=== PATIENT | male | born 1950 | race Caucasian/White ===

== ENCOUNTER 2018-04-14 09:29 | Inpatient (IN) | payer OTHER ==
[2018-04-09 10:56] LABS: BASOPHILS % (AUTO) 0.5 % (0-1); EOSINOPHILS # (AUTO) 0.4 X10'3 (0-0.9); EOSINOPHILS % (AUTO) 4.8 % (0-6); LYMPHOCYTES # (AUTO) 1.9 X10'3 (1.1-4.8); LYMPHOCYTES % (AUTO) 24.6 % (21-51); MEAN CORPUSCULAR HGB CONC 34.8 % (33.0-36.5); MEAN CORPUSCULAR VOLUME 95.1 FL (78-98); MEAN PLATELET VOLUME 8.1 FL (7.4-10.4); MONOCYTES # (AUTO) 0.5 X10'3 (0-0.9); MONOCYTES % (AUTO) 7.2 % (2-12); NEUTROPHILS # (AUTO) 4.7 X10'3 (1.8-7.7); NEUTROPHILS % (AUTO) 62.9 % (42-75); PRE OP HEMATOCRIT 36.7 % (42.0-52.0); PRE OP HEMOGLOBIN 12.8 g/dL (14.0-17.9); PRE OP PLATELET COUNT 299 X10'3 (140-440); RED BLOOD COUNT 3.86 X10'6 (4.70-6.10); RED CELL DISTRIBUTION WIDTH 13.1 % (11.5-14.5)
[2018-04-09 11:01] LABS: CLARITY,URINE CLEAR (Clear); COLOR,URINE YELLOW (Yellow); GLUCOSE, URINE NEGATIVE (Neg); KETONES,URINE TRACE mg/dl (Neg); LEUKOCYTE ESTERASE ,URINE NEGATIVE (Neg); NITRITES, URINE NEGATIVE (Neg); OCCULT BLOOD,URINE MODERATE (Neg); PH,URINE 6.5 (4.8-8.0); PROTEIN,URINE NEGATIVE (Neg); UROBILINOGEN,URINE 0.2 E.U/dL (0.2-1.0)
[2018-04-09 11:04] LABS: UA COLLECTION TYPE CLN CATCH MIDSTREAM
[2018-04-09 11:07] LABS: BACTERIA,URINE NONE SEEN /HPF (Neg); MUCUS STRANDS NONE SEEN /LPF (Neg); SQUAMOUS EPITHELIAL CELL,UR NONE SEEN /LPF (FEW); WBC,URINE NONE SEEN /HPF (0-4)
[2018-04-09 11:07] LABS: PRE OP INR 1.2 INR; PRE OP PROTIME 12.7 SECONDS (9.0-12.0)
[2018-04-09 11:13] LABS: ALBUMIN 3.6 G/DL (3.4-5.0); ALKALINE PHOSPHATASE 105 IU/L (46-116); BLOOD UREA NITROGEN 7 MG/DL (7-18); BUN/CREATININE RATIO 7.2 (5.4-32.0); CHLORIDE 99 MMOL/L (99-107); CREATININE 0.97 MG/DL (0.60-1.10); PRE OP ALT 19 U/L (30-65); PRE OP ANION GAP 9 (8-16); PRE OP AST 14 U/L (10-37); PRE OP BILIRUB, TOTAL 1.2 MG/DL (0.0-1.0); PRE OP GLUCOSE 103 MG/DL (70-104); PRE OP POTASSIUM 4.1 MMOL/L (3.4-5.1); PRE OP SODIUM 135 MMOL/L (135-145); TOTAL CARBON DIOXIDE 27.1 MMOL/L (24-32); TOTAL PROTEIN 7.3 G/DL (6.4-8.2); eGFR 77 ML/MIN
[2018-04-14] VITALS (18 sets, daily range): BP systolic 88–141; BP diastolic 55–78
[~2018-04-14] VITALS: Ht 177.8 cm; Wt 93.4 kg
[~2018-04-14 09:29] MED LIST: CYAN-19 PO; Cefazolin 2GM/50ML dext iso,osmotic IVPB IV ONE; DABI150C PO; HYDROmorphone 1 mg/ml syringe IV PRN; HYDROmorphone inj. 0.5 MG/0.5 ML DISP.SYRIN IV PRN; LISI10TA4 PO; PRAV40TA3 PO; VERA180T PO; acetaminophen 325mg tablet PO ONE; acetaminophen 325mg tablet PO PRN; ascorbic acid 500mg tablet PO SCH; bisacodyl 10mg suppository rectal RC PRN; celeCOXIB 100mg capsule PO ONE; dabigatran 150mg capsule PO SCH; diphenhydrAMINE 25mg capsule PO PRN; famotidine 20mg tablet PO ONE; gabapentin 300mg capsule PO ONE; gabapentin 300mg capsule PO SCH; lisinopril 10 MG tablet PO SCH; magnesium hydroxide 30ml (MOM) UD suspension PO PRN; metoclopramide 5 mg/ml inj IV ONE; multivitamins, therapeutics tablet PO SCH; ondansetron/PF 4mg/2ml inj IV PRN; oxyCODONE IR 5mg (immed. release) tablet PO PRN; oxyCODONE SR 10mg (sust. release) tab PO ONE; potassium cl 20mEq in 1/2 NS 1,000 ML IV SCH; ringers solution, lacted 1,000 ML IV SCH; tranexamic acid inj. 1,000 MG in normal saline 100ml IV soln 90 ML IV ONE; vancomycin inj 1,500 MG in normal saline 300ml IV soln IV ONE; verapamil SR 180mg tablet PO SCH
[2018-04-14] MEDS ORDERED: ketorolac trometh. 30mg/ml inj. ONE ×2 (12:21→14:33)
[2018-04-14] MEDS ORDERED: vancomycin 1,000mg inj ONE ×2 (12:21→14:33)
[2018-04-14] MEDS ORDERED: ROPIVAcaine inj 250 MG, epiNEPHrine inj 0.5 MG, CloNIDine/PF inj 80 MCG in normal salin... SQ ONE ×2 (12:25→14:35)
[2018-04-14 13:42] LABS: PROTHROMBIN TIME 10.7 SECONDS (9.0-12.0)
[2018-04-14 14:03] LABS: PARTIAL THROMBOPLASTIN TIME 20 SECONDS (22-32)
[2018-04-14] MEDS ORDERED: BUPIVAcaine/PF 7.5mg/ml (0.75%) 10ml vial ONE (15:15)
[2018-04-14] MEDS ORDERED: tetracaine 1% (10mg/ml) pres. free inj. ONE (15:16)
[2018-04-14] MEDS ORDERED: fentaNYL/PF 50MCG/1 ML 2ML syringe ONE (15:17)
[2018-04-14] MEDS ORDERED: MIDAZolam 1mg/ml 10ml vial ONE (15:17)
[2018-04-14] MEDS ORDERED: ePHEDrine 50MG/ML INJ. ONE (16:06)
[2018-04-14] MEDS ORDERED: propofol inj 20 ML IV ONE (16:47)
[2018-04-14] MEDS ORDERED: ringers solution, lacted 1,000 ML IV SCH (16:53)
[2018-04-14] MEDS ORDERED: morphine 4 MG/ML inj SYRINge IV PRN ×2 (16:55)
[2018-04-14] MEDS ORDERED: meperidine/PF 25mg/ml syringe IV PRN ×3 (16:55)
[2018-04-14] MEDS ORDERED: proCHLORperazine 10 MG/2 ml inj IV PRN (16:55)
[2018-04-14] MEDS ORDERED: ondansetron/PF 4mg/2ml inj IV PRN (16:55)
[2018-04-14] MEDS: gabapentin 300mg capsule PO SCH ×2 (19:18→21:15)
[2018-04-14] MEDS: cyanocobalamin 500mcg tablet PO SCH (19:18)
[2018-04-14] MEDS ORDERED: sennosides 8.6mg tablet PO SCH (21:00)
[2018-04-14] MEDS: ascorbic acid 500mg tablet PO SCH (21:15)
[2018-04-14] MEDS: acetaminophen 325mg tablet PO SCH (21:15)
[2018-04-14] MEDS: sennosides 8.6mg tablet PO SCH (21:15)
[2018-04-14] MEDS: cefazolin/dext.iso 2gm/50ml 50 ML IV SCH (21:15)
[2018-04-14] MEDS: potassium cl 20mEq in 1/2 NS 1,000 ML IV SCH (21:15)
[2018-04-14] MEDS: dabigatran 150mg capsule PO SCH (21:15)
[2018-04-14] MEDS: verapamil SR 180mg tablet PO SCH (21:15)
[2018-04-14] MEDS: pravastatin 40mg tablet PO SCH (21:15)
[2018-04-15 02:00] VITALS: BP 105/63
[2018-04-15] MEDS: acetaminophen 325mg tablet PO SCH ×4 (02:00→19:50)
[2018-04-15] MEDS: cefazolin/dext.iso 2gm/50ml 50 ML IV SCH (03:47)
[2018-04-15] MEDS: oxyCODONE IR 5mg (immed. release) tablet PO PRN ×4 (05:33→22:29)
[2018-04-15] MEDS: potassium cl 20mEq in 1/2 NS 1,000 ML IV SCH ×3 (05:33→12:49)
[2018-04-15 06:00] VITALS: BP 112/68
[2018-04-15 06:03] LABS: BASOPHILS % (AUTO) 0.5 % (0-1); EOSINOPHILS # (AUTO) 0.1 X10'3 (0-0.9); HEMATOCRIT 28.8 % (42.0-52.0); HEMOGLOBIN 9.9 g/dl (14.0-17.9); LYMPHOCYTES # (AUTO) 1.4 X10'3 (1.1-4.8); LYMPHOCYTES % (AUTO) 19.1 % (21-51); MEAN CORPUSCULAR HGB CONC 34.5 % (33.0-36.5); MEAN CORPUSCULAR VOLUME 95.7 FL (78-98); MEAN PLATELET VOLUME 8.2 FL (7.4-10.4); MONOCYTES # (AUTO) 0.4 X10'3 (0-0.9); MONOCYTES % (AUTO) 6.3 % (2-12); NEUTROPHILS # (AUTO) 5.1 X10'3 (1.8-7.7); NEUTROPHILS % (AUTO) 72.1 % (42-75); PLATELET COUNT 221 X10'3 (140-440); RED BLOOD COUNT 3.01 X10'6 (4.70-6.10); WHITE BLOOD COUNT 7.1 X10'3 (4.5-11.0)
[2018-04-15 06:16] LABS: ANION GAP 6 (8-16); CHLORIDE 101 MMOL/L (99-107); POTASSIUM 5.1 MMOL/L (3.5-5.1); SODIUM 133 MMOL/L (135-145); TOTAL CARBON DIOXIDE 25.8 MMOL/L (24-32)
[2018-04-15] MEDS: verapamil SR 180mg tablet PO SCH ×2 (08:31→19:49)
[2018-04-15] MEDS: dabigatran 150mg capsule PO SCH ×2 (08:32→19:49)
[2018-04-15] MEDS: gabapentin 300mg capsule PO SCH ×3 (08:32→19:49)
[2018-04-15] MEDS: multivitamins, therapeutics tablet PO SCH (08:32)
[2018-04-15] MEDS: cyanocobalamin 500mcg tablet PO SCH (08:33)
[2018-04-15] MEDS: lisinopril 10 MG tablet PO SCH (08:33)
[2018-04-15] MEDS: ascorbic acid 500mg tablet PO SCH ×2 (08:33→19:49)
[2018-04-15 10:00] VITALS: BP 127/74
[2018-04-15 18:00] VITALS: BP 106/70
[2018-04-15] MEDS: pravastatin 40mg tablet PO SCH (19:49)
[2018-04-15] MEDS: sennosides 8.6mg tablet PO SCH (19:50)
[2018-04-15 22:00] VITALS: BP 136/71
[2018-04-16] MEDS: acetaminophen 325mg tablet PO SCH (02:00)
[2018-04-16 05:00] VITALS: BP 116/67
[2018-04-16 05:39] LABS: BASOPHILS % (AUTO) 0.3 % (0-1); EOSINOPHILS # (AUTO) 0.2 X10'3 (0-0.9); EOSINOPHILS % (AUTO) 2.7 % (0-6); HEMATOCRIT 30.5 % (42.0-52.0); HEMOGLOBIN 10.5 g/dl (14.0-17.9); LYMPHOCYTES # (AUTO) 1.2 X10'3 (1.1-4.8); LYMPHOCYTES % (AUTO) 13.8 % (21-51); MEAN CORPUSCULAR HEMOGLOBIN 33.1 PG (27.0-31.0); MEAN CORPUSCULAR HGB CONC 34.5 % (33.0-36.5); MEAN CORPUSCULAR VOLUME 96.2 FL (78-98); MEAN PLATELET VOLUME 8.5 FL (7.4-10.4); MONOCYTES # (AUTO) 0.7 X10'3 (0-0.9); MONOCYTES % (AUTO) 8.5 % (2-12); NEUTROPHILS # (AUTO) 6.5 X10'3 (1.8-7.7); NEUTROPHILS % (AUTO) 74.7 % (42-75); PLATELET COUNT 247 X10'3 (140-440); RED BLOOD COUNT 3.17 X10'6 (4.70-6.10); WHITE BLOOD COUNT 8.6 X10'3 (4.5-11.0)
[2018-04-16] MEDS: oxyCODONE IR 5mg (immed. release) tablet PO PRN (05:47)
[2018-04-16] MEDS: verapamil SR 180mg tablet PO SCH (08:59)
[2018-04-16] MEDS: cyanocobalamin 500mcg tablet PO SCH (09:00)
[2018-04-16] MEDS: dabigatran 150mg capsule PO SCH (09:00)
[2018-04-16] MEDS: lisinopril 10 MG tablet PO SCH (09:00)
[2018-04-16] MEDS: gabapentin 300mg capsule PO SCH (09:00)
[2018-04-16] MEDS: ascorbic acid 500mg tablet PO SCH (09:00)
[2018-04-16] MEDS: multivitamins, therapeutics tablet PO SCH (09:00)
[2018-04-16 10:00] VITALS: BP 120/69
== END 2018-04-16 11:30 | disposition home or self-care (01) | DRG 470 ==
LOC: PAS IN 11:32 → EDSTATUS 16:30 → ORTHO 4S 19:00
PROVIDERS: ADMIT Orthopaedic Surgery; ATTEND Orthopaedic Surgery
PROC: 0SRB06Z Replacement of Left Hip Joint with Oxidized Zirconium on Polyethylene Synthetic Substitute, Open Approach (ICD-10-PCS; principal; 2018-04-14 15:17)
DX: M16.12 Unilateral primary osteoarthritis, left hip (principal); M87.052 Idiopathic aseptic necrosis of left femur; D62 Acute posthemorrhagic anemia; E78.5 Hyperlipidemia, unspecified; I10 Essential (primary) hypertension; I48.91 Unspecified atrial fibrillation; M25.752 Osteophyte, left hip; Z96.641 Presence of right artificial hip joint; M81.0 Age-related osteoporosis without current pathological fracture; Z79.82 Long term (current) use of aspirin; Z79.899 Other long term (current) drug therapy; Z80.1 Family history of malignant neoplasm of trachea, bronchus and lung
CPT/HCPCS: 36415; 71046; 72170; 80051; 80053; 81001; 85025; 85610; 85730; 86885; 86900; 86901; 87070; 97110; 97116; 97162; 97530; A4615; A6255; A7000; A9272; C1758; C1776; J0171; J0690; J0735; J1885; J2250; J2704; J2765; J2795; J3010; J3370; J3420; J3490; J7030; J7120

== ENCOUNTER 2023-08-25 08:47 | Outpatient (CLI) | payer OTHER ==
[~2023-08-25 08:47] MED LIST changes: -CYAN-19 PO; +CYAN100019 PO; -Cefazolin 2GM/50ML dext iso,osmotic IVPB IV ONE; -HYDROmorphone 1 mg/ml syringe IV PRN; -HYDROmorphone inj. 0.5 MG/0.5 ML DISP.SYRIN IV PRN; +LISI10TA27 PO; -LISI10TA4 PO; -acetaminophen 325mg tablet PO ONE; -acetaminophen 325mg tablet PO PRN; -ascorbic acid 500mg tablet PO SCH; -bisacodyl 10mg suppository rectal RC PRN; -celeCOXIB 100mg capsule PO ONE; -dabigatran 150mg capsule PO SCH; -diphenhydrAMINE 25mg capsule PO PRN; -famotidine 20mg tablet PO ONE; -gabapentin 300mg capsule PO ONE; -gabapentin 300mg capsule PO SCH; -lisinopril 10 MG tablet PO SCH; -magnesium hydroxide 30ml (MOM) UD suspension PO PRN; -metoclopramide 5 mg/ml inj IV ONE; -multivitamins, therapeutics tablet PO SCH; -ondansetron/PF 4mg/2ml inj IV PRN; -oxyCODONE IR 5mg (immed. release) tablet PO PRN; -oxyCODONE SR 10mg (sust. release) tab PO ONE; -potassium cl 20mEq in 1/2 NS 1,000 ML IV SCH; -ringers solution, lacted 1,000 ML IV SCH; -tranexamic acid inj. 1,000 MG in normal saline 100ml IV soln 90 ML IV ONE; -vancomycin inj 1,500 MG in normal saline 300ml IV soln IV ONE; -verapamil SR 180mg tablet PO SCH
== END 2023-08-25 23:59 | disposition home or self-care (01) ==
LOC: CARD DIAG 08:47
PROVIDERS: ATTEND Chiropractor
DX: I08.8 Other rheumatic multiple valve diseases (principal); I25.9 Chronic ischemic heart disease, unspecified; I48.91 Unspecified atrial fibrillation; R01.1 Cardiac murmur, unspecified
CPT/HCPCS: 93005; 93306

== ENCOUNTER 2024-01-05 14:15 | Outpatient (CLI) | payer OTHER | END 2024-01-05 23:59 | disposition home or self-care (01) | LOC: RAD 14:15 | PROVIDERS: ATTEND Chiropractor | DX: I08.8 Other rheumatic multiple valve diseases (principal); I25.89 Other forms of chronic ischemic heart disease | CPT/HCPCS: 93306 ==

== ENCOUNTER 2024-09-13 08:41 | Outpatient (CLI) | payer OTHER | END 2024-09-13 23:59 | disposition home or self-care (01) | LOC: CARD DIAG 08:41 | PROVIDERS: ATTEND Chiropractor | DX: I08.3 Combined rheumatic disorders of mitral, aortic and tricuspid valves (principal); I48.91 Unspecified atrial fibrillation; I25.89 Other forms of chronic ischemic heart disease; I25.10 Atherosclerotic heart disease of native coronary artery without angina pectoris; I70.0 Atherosclerosis of aorta | CPT/HCPCS: 93005; 93306 ==

== ENCOUNTER 2024-12-02 09:31 | Outpatient (CLI) | payer OTHER ==
[~2024-12-02 09:31] MED LIST changes: +APIX5TAB3 PO; +CHOL100046 PO; -DABI150C PO; +ENOX80SY7 SUBCUT; +IODIXANOL 320 MG/ML INFUS..BTL 100ML IV ONE; -LISI10TA27 PO; -PRAV40TA3 PO; +ROSU20TA98 PO
[2024-12-02 10:23] LABS: BASOPHILS # (AUTO) 0.1 X10'3 (0-0.2); EOSINOPHILS # (AUTO) 0.1 X10'3 (0-0.9); EOSINOPHILS % (AUTO) 1.4 % (0-6); HEMATOCRIT 42.2 % (42.0-52.0); HEMOGLOBIN 14.5 g/dl (14.0-17.9); LYMPHOCYTES # (AUTO) 1.5 X10'3 (1.1-4.8); LYMPHOCYTES % (AUTO) 26.9 % (21-51); MEAN CORPUSCULAR HEMOGLOBIN 32.8 PG (27.0-31.0); MEAN CORPUSCULAR HGB CONC 34.3 g/dL (33.0-36.5); MEAN CORPUSCULAR VOLUME 95.7 FL (78-98); MEAN PLATELET VOLUME 8.6 FL (7.4-10.4); MONOCYTES # (AUTO) 0.4 X10'3 (0-0.9); NEUTROPHILS # (AUTO) 3.4 X10'3 (1.8-7.7); NEUTROPHILS % (AUTO) 62.7 % (42-75); PLATELET COUNT 251 X10'3 (140-440); RED BLOOD COUNT 4.41 X10'6 (4.70-6.10); WHITE BLOOD COUNT 5.5 X10'3 (4.5-11.0)
[2024-12-02 10:37] LABS: INR 1.2 INR; PROTHROMBIN TIME 12.4 SECONDS (9.0-12.0)
[2024-12-02 10:41] LABS: ALANINE AMINOTRANSFERASE 28 U/L (12-78); ALBUMIN/GLOBULIN RATIO 1.1 (1.1-1.5); ALKALINE PHOSPHATASE 92 IU/L (46-116); ANION GAP 8 (8-16); ASPARTATE AMINO TRANSFERASE 22 U/L (10-37); BILIRUBIN,TOTAL 1.3 MG/DL (0.1-1.0); BLOOD UREA NITROGEN 11 MG/DL (7-18); BUN/CREATININE RATIO 13.4 (10.0-20.0); CALCIUM 9.4 MG/DL (8.5-10.1); CHLORIDE 104 MMOL/L (99-107); CREATININE 0.82 MG/DL (0.60-1.10); GLUCOSE 95 MG/DL (70-104); SODIUM 142 MMOL/L (135-145); TOTAL CARBON DIOXIDE 30.5 MMOL/L (24-32); TOTAL PROTEIN 7.5 G/DL (6.4-8.2); eGFR > 90 ML/MIN
[2024-12-02 10:48] LABS: APTT 31 SECONDS (22-32)
[2024-12-02 10:49] LABS: PRO BRAIN NATRIURETIC PEPTIDE 1058 PG/ML (0-450)
== END 2024-12-02 23:59 | disposition home or self-care (01) ==
LOC: RAD 09:31
PROVIDERS: ATTEND Internal Medicine Cardiovascular Disease
DX: I25.10 Atherosclerotic heart disease of native coronary artery without angina pectoris (principal); I65.23 Occlusion and stenosis of bilateral carotid arteries; I35.0 Nonrheumatic aortic (valve) stenosis; R06.02 Shortness of breath; I70.0 Atherosclerosis of aorta; I65.29 Occlusion and stenosis of unspecified carotid artery; J98.11 Atelectasis; K76.89 Other specified diseases of liver; M47.816 Spondylosis without myelopathy or radiculopathy, lumbar region
CPT/HCPCS: 36415; 71046; 71275; 74174; 75572; 80053; 83880; 85025; 85610; 85730; 93880; Q9967

== ENCOUNTER 2025-06-23 05:56 | Inpatient (IN) | payer OTHER ==
--- NOTE | 2025-06-16 15:23 | ELECTROCARDIOGRAPH REPORT ---
[facility] Test Date: 2025-06-16 Test Time: 15:21:15 Pat Name: JAVIER SWAIN Department: PRE/OP CARDIOLOGY Room: Gender: M Pie Dough Roller: NONA : 1950 Requested By: AJIT BAGLEY Order Number: [id number] Reading MD: Dr. LEDY Hanna Measurements Intervals [place] Rate: 76 P: 0 TX: 0 QRS: 68 QRSD: 91 T: 30 QT: 449 QTc: 505 Interpretive Statements Atrial fibrillation Electronically Signed On 06-17-2025 16:48:[address] LEDY Hanna Please click the below link to view image of tracing.
[2025-06-16 15:32] LABS: LEUKOCYTE ESTERASE ,URINE NEGATIVE (Neg); NITRITES, URINE NEGATIVE (Neg); OCCULT BLOOD,URINE MODERATE (Neg); UA COLLECTION TYPE NON-SPECIFIED
[2025-06-16 15:33] LABS: MEAN PLATELET VOLUME 8.4 FL (7.4-10.4); PRE OP HEMATOCRIT 38.6 % (42.0-52.0); PRE OP HEMOGLOBIN 13.2 g/dL (14.0-17.9); PRE OP PLATELET COUNT 219 X10'3 (140-440); PRE OP WHITE BLOOD COUNT 6.4 10'3 (4.8-10.8); RED CELL DISTRIBUTION WIDTH 13.5 % (11.5-14.5)
[2025-06-16 15:42] LABS: SQUAMOUS EPITHELIAL CELL,UR FEW /LPF (FEW)
[2025-06-16 15:44] LABS: PRE OP INR 1.2 INR; PRE OP PARTIAL THROMB. TIME 31.0 SECONDS (22-32); PRE OP PROTIME 12.1 SECONDS (9.0-12.0)
[2025-06-16 15:55] LABS: CREATININE 1.17 MG/DL (0.60-1.10); PRE OP ALT 38 U/L (30-65); PRE OP ANION GAP 7 (8-16); PRE OP AST 25 U/L (10-37); PRE OP BILIRUB, TOTAL 0.8 MG/DL (0.0-1.0); PRE OP GLUCOSE 112 MG/DL (70-104); PRE OP POTASSIUM 3.9 MMOL/L (3.4-5.1); PRE OP SODIUM 142 MMOL/L (135-145); PRO BRAIN NATRIURETIC PEPTIDE 1500 PG/ML (0-450); TOTAL CARBON DIOXIDE 29.4 MMOL/L (24-32); eGFR 61 ML/MIN
[~2025-06-23] VITALS: Ht 177.8 cm; Wt 89.4 kg
[2025-06-23] VITALS (28 sets, daily range): BP systolic 111–163; BP diastolic 58–94; PULSE 65–104; RESP 11–19; TEMP 96.9–97.8; O2SAT 93–100
[2025-06-23] MEDS: ceFAZolin 2gm/dext,iso 50mL 50 ML IV ONE (05:30)
[~2025-06-23 05:56] MED LIST changes: -ENOX80SY7 SUBCUT; -IODIXANOL 320 MG/ML INFUS..BTL 100ML IV ONE; +nitroPRUSSIDE (NIPRIDE) (200MCG/ML) 100ML Drip IV SCH; +ondansetron/PF 4mg/2ml inj IV PRN; +phenylephrine inj 50 MG in normal saline 250ml IV solN IV SCH
--- NOTE | 2025-06-23 06:51 | RADIOLOGY REPORT ---
CHEST RADIOGRAPH Indication: PREOP Technique: Single frontal view of the chest was obtained COMPARISON: DI CHEST,TWO VIEWS on DOS: 12/02/24 FINDINGS: Lines and Tubes: None Lungs: Clear Pleura: No effusion. No pneumothorax. Cardiomediastinal contours: Unremarkable Bones: Unremarkable IMPRESSION: 1. No acute disease.
[2025-06-23] MEDS: ringers solution, lacted 1,000 ML IV SCH ×2 (07:00→07:05)
[2025-06-23] MEDS: VANCOMYCIN/H2O 1.5g/300mL PB 300 ML IV ONE (07:02)
[2025-06-23] MEDS ORDERED: labetalol 20mg/4ml (5mg/ml) syringe IV PRN ×2 (07:05→10:20)
[2025-06-23] MEDS ORDERED: hydrALAZINE 20mg/ml inj. IV PRN ×2 (07:05→10:20)
[2025-06-23] MEDS ORDERED: ondansetron/PF 4mg/2ml inj IV PRN ×2 (07:05→10:20)
[2025-06-23] MEDS ORDERED: morphine 4 MG/ML inj SYRINge IV PRN ×2 (07:05)
[2025-06-23] MEDS ORDERED: protamine sulfate 10mg/ml inj. ONE (08:40)
[2025-06-23] MEDS ORDERED: heparin 1,000 UNITS/NS 500ml 1,500 ML ONE (08:44)
[2025-06-23] MEDS ORDERED: LIDOcaine 1% 30ml preserv. free vial ONE (08:44)
[2025-06-23] MEDS ORDERED: midazolam 1 mg/ML 2ml injection ONE (08:45)
[2025-06-23] MEDS ORDERED: fentaNYL/PF 50MCG/1 ML 2ML syringe ONE (08:45)
[2025-06-23] MEDS ORDERED: desflurane 240ml liquid inh. IH ONE (09:33)
[2025-06-23] MEDS ORDERED: heparin 1,000unit/ml 10ml vial 10 ML ONE (09:40)
[2025-06-23] MEDS ORDERED: LIDOcaine 2% (20mg/ml) 5ml vial ONE (09:40)
[2025-06-23] MEDS ORDERED: propofol inj 20 ML IV ONE (09:40)
[2025-06-23] MEDS ORDERED: pantoprazole 40mg Tablet.DR PO PRN (10:20)
[2025-06-23] MEDS ORDERED: ALPRAZolam 0.25mg tablet PO PRN (10:20)
[2025-06-23] MEDS ORDERED: docusate sod 100mg capsule PO PRN (10:20)
[2025-06-23] MEDS ORDERED: potassium Cl 40MEQ/270ML bag 250 ML IV PRN (10:20)
[2025-06-23] MEDS ORDERED: potassium Cl 20 mEq SR tablet PO PRN (10:20)
[2025-06-23] MEDS ORDERED: magnesium sulf-water 2g/50mL 50 ML IV PRN (10:20)
[2025-06-23] MEDS ORDERED: potassium CL 10mEq/100ml bag 100 ML IV PRN (10:20)
[2025-06-23] MEDS ORDERED: potassium Cl 20mEq/100mL bag 100 ML IV PRN (10:20)
[2025-06-23] MEDS ORDERED: potassium Cl 40MEQ/1/2NS 520ml 520 ML IV PRN (10:20)
[2025-06-23] MEDS ORDERED: magnesium sulf-water 4G/100mL 100 ML IV PRN (10:20)
--- NOTE | 2025-06-23 10:29 | OPERATIVE REPORT ---
Operative Report Providers to CC CC: Tristen Bonilla MD; JAYESH GATICA MD ~ Date of Procedure: Jun 23, 2025 Pre-Operative Diagnosis: Severe Aortic Stenosis Post-Operative Diagnosis SAME as PRE-Op Procedure Performed 1. Ultrasound-guided access, bilateral femoral vessels. 2. Bilateral femoral angiography. 3. Ascending aortography. 4. Temporary transvenous pacer to the RV apex. 5. Placement of a 26 mm Olmedo S3 Resilia valve. Surgeon: Cristian Gatica MD Plate Shear Operator MD Dr. Rajat Whaley MD Anesthesiologist: Ronni Ledbetter Type of Anesthesia: General Findings: Severe Aortic Stenosis Complications None Prosthetics\Implants used: Olmedo 26mm S3 Resilia Estimated Blood Loss: Minimal Specimen Removed: None Description of Procedure: The patient was brought to the logging rafter laborer in a fasting state. They underwent general anesthesia. Ultrasound was used to guide access to the bilateral femoral vessels, 7-Norwegian sheath, left femoral artery, 6-Norwegian sheath, right femoral artery and left femoral vein. Bilateral femoral angiograms were obtained. Heparin was given to maintain an ACT over 250 seconds. Two crisscross Percloses were placed on the left. We upsized to an 8-Norwegian sheath. Two pigtail catheters placed in the ascending aorta. Ascending aortography done to determine the angle of deployment. Temporary transvenous pacer to the RV apex and confirmed capture. We upsized an 8-Norwegian sheath to a 14-Norwegian Olmedo eSheath on the left. We crossed the aortic valve using a straight stiff exchange length Terumo wire supported by a 6-Norwegian AL1 catheter. LV AO pressures were recorded. A Cook extra support wire was placed in the left ventricle. A 26mm Olmedo S3 Resilia valve was brought to position and under rapid right ventricular pacing was deployed. Post-procedure, there was trivial AI and no residual . Guidewires and balloons were removed at this time. The temporary pacer was removed. The 14-Norwegian Olmedo eSheath was removed and two crisscross Percloses tied with adequate hemostasis. The arterial sheath on the right was removed and a single Perclose tied. The venous sheath on the left was removed and a single Angioseal used for hemostasis. Protamine was given to reverse the effects of heparin. The patient was stable post-procedure. Good pulses in the legs and no evidence of bleeding, transferred to the PACU in stable condition. HEMODYNAMICS: Pre: LV: 155/12 mmHg LVEDP: 23mmHg Ao: 124/64, MAP 88mmHg Post: LV: 146/16 mmHg LVEDP: 29 mmHg Ao: 142/71, MAP 99mmHg RESULTS: 1. Successful placement of a 26mm Olmedo S3 Resilia valve, left transfemoral approach, two perclose devices. Resume OAC in AM if no signs/symptoms of bleeding 2. Afib: h/o CVA. OAC as above 3. Hypertension: Resume if blood pressure remains stable 4. Acute on chronic diastolic heart failure, LVEDP 23mmHg. Moderate MR. Patient will be watched in the recovery area until stable, then transferred to telemetry at that time. CRISTIAN GATICA MD Jun 23, 2025 10:29
--- NOTE | 2025-06-23 10:43 | ELECTROCARDIOGRAPH REPORT ---
[facility] Test Date: 2025-06-23 Test Time: 10:40:42 Pat Name: JAVIER SWAIN Department: [facility] IN Room: [place] [address] Gender: M Home Lighting Adviser: NONA : 1950 Requested By: CRISTIAN HERNANDEZ Order Number: [id number] Reading MD: Dr. LEDY Hanna Measurements Intervals [place] Rate: 76 P: 0 PA: 0 QRS: 42 QRSD: 146 T: 27 QT: 511 QTc: 575 Interpretive Statements Atrial fibrillation Left bundle branch block Electronically Signed On 06-24-2025 16:26:[address] LEDY Hanna Please click the below link to view image of tracing.
[2025-06-23] MEDS: normal saline 1000ml 1,000 ML IV SCH (13:02)
[2025-06-23] MEDS: ceFAZolin 1GM/D5W- ADD-VANTAGE 50 ML IV SCH (16:41)
[2025-06-23] MEDS: sod chloride 0.9% 10ml flush syringe IV SCH (16:42)
--- NOTE | 2025-06-23 16:58 | CARDIOLOGY REPORT ---
APPROVED REPORT EXAM: Focused, limited intraprocedural transthoracic 2D, spectral and color flow Doppler echocardiogram during TAVR deployment. Patient Location: [facility] Blood Pressure: 143 / 79 mmHg Heart Rate: 90'S bpm Rhythm: ATRIAL FIBRILLATION Indications SEVERE AORTIC STENOSIS 26 mm Olmedo Malu 3 Ultra RESILIA Bioprosthetic TAVR HYPERTENSION ATRIAL FIBRILLATION Photo Technologist: Nitza ADLER MD / Interventionalist: Nickolas Gatica MD and Rosa Jerez MD. / Surgeon: Anselmo Willson MD. / Device rep: Destiny Balbuena ELS Previous echo: 09/13/24 [facility] RL EF: 60-65%; FERNANDO 0.69; PKV: 4.29; GRAD: 75 / 43; LVOT 2.11; Liliya; modMR; mTR LEFT VENTRICLE Normal LV size with mild concentric hypertrophy. Overall systolic function is normal. LVEF is 65%. RIGHT VENTRICLE RV is normal size and function. RVSP is estimated at 37 mmHG. ATRIA Left atrium is severely dilated. AORTIC VALVE Trileaflet AV appears heavily calcified with significant stenosis demonstrated by reduced excursion and increased transvalvular and ascending aorta turbulance. FERNANDO: 0.6 cmsq; Pkv: 3.90 m/sec; Gradients: 60/33 mmHG. Mild insufficiency. POST DEPLOYMENT (LOOP: 20): 26 mm Olmedo Malu 3 Ultra Resilia bioprosthetic TAVR appears well seated with normal function. Trace paravalvular leak present at 2 and 7 o'clock in TTE SAX BASE. FERNANDO is measured at 3.35 cmsq. Peak/mean gradients of 6/3 mmHG. Peak velocity is measured at 1.27 m/sec. MITRAL VALVE Moderate MV annular calcification without stenosis. Moderate regurgitation. TRICUSPID VALVE TV appears structurally normal with mild regurgitation. PULMONIC VALVE Normal PV without stenosis, mild insufficiency. GREAT VESSELS Aortic root is normal in size. Ascending aorta is normal in size. PERICARDIUM Normal pericardium. No effusion.
[2025-06-23] MEDS: vancomycin/NS 1 GM ADD-VANTAGE 250 ML IV SCH (20:51)
[2025-06-23] MEDS: verapamil SR 180mg tablet PO SCH (22:13)
[2025-06-24 02:00] VITALS: BP 123/91; PULSE 56; RESP 18; TEMP 97.8; O2SAT 92
[2025-06-24] MEDS: HYDROcodone/acetaminophen 5mg/325mg tablet PO PRN (03:38)
[2025-06-24 06:01] LABS: MEAN PLATELET VOLUME 9.1 FL (7.4-10.4); RED CELL DISTRIBUTION WIDTH 13.0 % (11.5-14.5)
[2025-06-24 06:25] LABS: CREATININE 0.88 MG/DL (0.60-1.10); PRO BRAIN NATRIURETIC PEPTIDE 2587 PG/ML (0-450); TOTAL CARBON DIOXIDE 23.8 MMOL/L (24-32); eCRCL 74 ML/MIN; eGFR 84 ML/MIN
--- NOTE | 2025-06-24 06:28 | ELECTROCARDIOGRAPH REPORT ---
[facility] Test Date: 2025-06-24 Test Time: 06:25:52 Pat Name: JAVIER SWAIN Department: [facility] 3S Room: [facility] [address] Gender: M Carbonation Equipment Operator: DEBRA : 1950 Requested By: CRISTIAN HERNANDEZ Order Number: [id number] Reading MD: Dr. LEDY Hanna Measurements Intervals [place] Rate: 69 P: 0 [place]: 0 QRS: 54 QRSD: 84 T: 56 QT: 463 QTc: 496 Interpretive Statements Atrial fibrillation Probable anteroseptal infarct, old Prolonged QT interval Electronically Signed On 06-24-2025 16:27:[address] LEDY Hanna Please click the below link to view image of tracing.
[2025-06-24 07:00] VITALS: BP 122/51; PULSE 69; RESP 15; TEMP 97.4; O2SAT 98
--- NOTE | 2025-06-24 08:43 | RADIOLOGY REPORT ---
EXAM: DI CHEST,SINGLE VIEW Indication: s/p TAVR Technique: Single frontal view of the chest was obtained Comparison: DI CHEST,SINGLE VIEW on DOS: 06/23/25, DI CHEST,TWO VIEWS on DOS: 12/02/24 FINDINGS: Lines and Tubes: None Lungs: No focal consolidation. Pleura: No effusion. No pneumothorax. Cardiomediastinal contours: Unremarkable Bones: No acute osseous abnormality. IMPRESSION: No acute cardiopulmonary disease.
[2025-06-24] MEDS: cyanocobalamin 500mcg tablet PO SCH (09:12)
[2025-06-24] MEDS: cholecalciferol (vitamin D3) 1,000 unit (25mcg) tablet PO SCH (09:13)
[2025-06-24 11:00] VITALS: BP 129/60; PULSE 78; RESP 15; TEMP 97.3; O2SAT 95
[2025-06-24] MEDS ORDERED: LIDOCAINE 2%/EPI 1:100,000 inj. Multi-dose 20 ML VIAL ONE (14:57)
[2025-06-24 15:00] VITALS: BP 150/56; PULSE 73; RESP 17; TEMP 97.5; O2SAT 98
--- NOTE | 2025-06-24 19:40 | CARDIOLOGY REPORT ---
APPROVED REPORT EXAM: Limited 2D, Doppler, and color-flow Echocardiogram. Patient Location: [facility] Blood Pressure: 123/91 mmHg Heart Rate: 70-90 bpm Rhythm: Atrial Fibrillation Indications ONE DAY FOLLOW-UP TAVR 26 mm Olmedo Malu 3 Ultra RESILIA Bioprosthetic TAVR Supervisor Rubber Covering: Nitza Bonilla MD Previous echo 06/23/25 [facility] EF 65; FERNANDO 3.35; Peak v 1.27; Grad 6/3 2D Dimensions LVOT Diameter 2.60 (1.8-2.4cm) IVC 22.88 mm Aortic Valve AoV Peak Rogelio. 163.9 cm/s AoV VTI 30.9 cm AO Peak GR. 10.7 mmHg AO Mean GR. 6 mmHg LVOT VTI 18.71 cm LVOT Peak Rogelio. 93.6 cm/s FERNANDO(VTI)/BSA 3.20 cm2/m2 FERNANDO (VTI) 3.20 cm2 Tricuspid Valve TR P. Velocity 243 cm/s RAP ESTIMATE 10 mmHg TR Peak Gr. 24 mmHg RVSP 34 mmHg LEFT VENTRICLE LV appears normal in size and contractility. Overall systolic function appears normal. LVEF is 65%. RIGHT VENTRICLE RV appears normal in size and contractility. RVSP is estimated at 34 mmHG. AORTIC VALVE 26 mm Olmedo Malu 3 Ultra RESILIA Bioprosthetic TAVR appears well seated. FERNANDO of 3.2 cmsq with a peak/mean gradient of 11/6 mmHG and a peak velocity 1.64 m/s. Trace paravalvular leak noted at 6 and 12 oclock PSAX TTE. MITRAL VALVE MV is thickened with moderate annular calcification. Mild to moderate mitral regurgitation. TRICUSPID VALVE The tricuspid valve is normal in structure. Mild tricuspid regurgitation. PULMONIC VALVE The pulmonary valve is normal in structure. Trace pulmonic regurgitation. GREAT VESSELS IVC is dilated and collapses greater than 50% with inspiration. PERICARDIUM There is no pericardial effusion. Other Information Study Quality: Adequate Conclusion LV appears normal in size and contractility. Overall systolic function appears normal. LVEF is 65%. RV appears normal in size and contractility. RVSP is estimated at 34 mmHG. 26 mm Olmedo Malu 3 Ultra RESILIA Bioprosthetic TAVR appears well seated. FERNANDO of 3.2 cmsq with a peak/mean gradient of 11/6 mmHG and a peak velocity 1.64 m/s. Trace paravalvular leak noted at 6 and 12 oclock PSAX TTE. MV is thickened with moderate annular calcification. Mild to moderate mitral regurgitation. The tricuspid valve is normal in structure. Mild tricuspid regurgitation. The pulmonary valve is normal in structure. Trace pulmonic regurgitation. There is no pericardial effusion.
--- NOTE | 2025-06-26 12:09 | DISCHARGE SUMMARY ---
Discharge Summary Providers to CC CC: Tristen Bonilla MD; JAYESH HERNANDEZ MD ~ Discharge Summary Admission Diagnosis: Severe Aortic Stenosis Hospital Course DATE OF ADMISSION: 06/23/2025 DATE OF DISCHARGE: 06/24/2025 Discharge Diagnosis\Comment: Aortic Stenosis status post Transcathere Aortic Valve Replacement Operations\Procedures: 1. Ultrasound-guided access, bilateral femoral vessels. 2. Bilateral femoral angiography. 3. Ascending aortography. 4. Temporary transvenous pacer to the RV apex. 5. Placement of a 26 mm Olmedo S3 Resilia valve. Consultants: None Complications: None Condition on DC: Stable Continued Medications: Apixaban (Eliquis) 5 Mg Tablet 1 TAB PO Q12H for 30 Days, #60 TAB 0 Refills Cholecalciferol (Vitamin D3) (Vitamin D3) 25 Mcg (1000 Unit) Capsule 1 CAP PO DAILY for 30 Days, #30 CAP 0 Refills Cyanocobalamin (Vitamin B-12) (Vitamin B-12) 1,000 Mcg Tablet 1 TABLET PO DAILY, #30 TABLET 2 Refills Rosuvastatin Calcium (Rosuvastatin Calcium) 20 Mg Tablet 1 TAB PO HS for 30 Days, #30 TAB 0 Refills Verapamil Hcl SR* (Calan SR*) 180 Mg Tablet.er 1 TAB PO BID for 30 Days, #30 TAB Discharge Summary: 75yo man with HTN, HLD, Afib, Severe symptomatic aortic stenosis admitted after elective TAVR. Did well overnight without issues. --Cont OAC --Educated on Endocarditis PPx *Problems/Diagnosis: (1) Aortic stenosis Total Time Spent on D/C: Up to 30 Minutes Counseling Services Smoking & Tobacco Cessation: N/A CRISTIAN HERNANDEZ MD Jun 26, 2025 12:09
--- NOTE | 2025-06-27 15:32 | OPERATIVE REPORT ---
Operative Report Providers to CC CC: CRISTIAN HERNANDEZ MD; AJIT BAGLEY MD ~ Date of Procedure: Jun 23, 2025 Pre-Operative Diagnosis: Severe Aortic Stenosis Post-Operative Diagnosis SAME as PRE-Op Procedure Performed 1. Transcatheter aortic valve replacement with 26 mm Olmedo S3 Resilia valve model [id number], SN [id number] bovine pericardial 2. Ultrasound-guided micropuncture access to femoral vessels for sheath placement: 6 Eritrean sheath left femoral artery later upsized to 14 Eritrean E sheath, 7 Eritrean sheath right femoral artery, 6 Eritrean sheath left femoral vein 3. Bilateral femoral angiography 4. Temporary transvenous pacemaker to right ventricular apex placement and later removal 5. Balloon aortic valvuloplasty with 23 mm balloon Surgeon: Rajat Cabrera MD, PhD, FACC Rotary Helper Interventional Cardiologists: MD Rito Biswas MD Anesthesiologist: Ronni Ledbetter Findings: Aortic stenosis Complications None Prosthetics\Implants used: Olmedo 26 mm S3 Resilia TAVR valve Estimated Blood Loss: Minimal Specimen Removed: None Description of Procedure: The patient was brought to the clinical laboratory manager, placed supine on the imaging table, and underwent general anesthesia. The patient was prepped and draped in sterile fashion. A radial arterial line was placed for continuous blood pressure monitoring. Ultrasound was used to guide access to the bilateral femoral vessels using micro puncture and modified Seldinger technique. A 7 Eritrean sheath was placed in the above femoral artery, and a 6 Eritrean sheath in the above femoral artery and vein. Bilateral femoral angiograms were obtained. Intravenous heparin was administered to maintain an ACT over 250 seconds. Two Perclose sutures were pre-placed in the working femoral artery for later closure following Esheath removal. The above working femoral artery access was upsized from a 6 Eritrean to an 8 Eritrean sheath. An angled pigtail catheter was advanced through the 7 Eritrean arterial sheath and parked in the right sinus of Valsalva to visualize the plane of the aortic annulus. A 2nd pigtail catheter was advanced through the 8 Eritrean arterial sheath into the ascending aorta. Aortography was performed to determine the final angles of deployment compared to those which had been calculated from the TAVR computed tomography images. A temporary balloon tipped transvenous pacemaker was advanced through the venous sheath to the right ventricular apex and capture was confirmed. The 8 Eritrean arterial sheath was upsized to the Olmedo E sheath through which the aortic valve was crossed using a straight stiff exchange length Terumo wire supported by a 6 Eritrean AL1 catheter. Left ventricular and aortic pressures were recorded. And extra support Cook wire with custom hand curling of the J-tip to match the internal dimensions of the apical left ventricle was advanced into the left ventricle. The above-listed Olmedo TAVR valve with distal valve skirt confirmed was crimped onto the delivery device. The delivery device was advanced over the wire in the Esheath to the thoracic aorta where the TAVR balloon was then retracted into position inside the TAVR valve. The device was 50% retroflexed for travel through the aortic arch, and the TAVR valve positioned in the [place] sal[place] aortic valve at the annulus. Right ventricular pacing at 180 beats per minute was initiated, the systolic blood pressure dropped below 50 mmHg, and the valve was deployed after full balloon inflation for 4 seconds taking care to ensure inflation pressure did not exceed 8 mmHg. Rapid balloon deflation was performed, rapid pacing discontinued, and hemodynamics recovered without incident. Transthoracic echocardiography was performed. Post procedure, there was no aortic insufficiency, no residual aortic stenosis, no paravalvular leak, and no pericardial effusion. Catheters, guidewires, and the delivery device were removed at this time. The temporary transvenous pacer was removed. The Olmedo Esheath was removed and the 2 pre-placed Perclose sutures were tied with adequate hemostasis. The 7 Eritrean arterial sheath was removed and a single Perclose suture was deployed and tied. The venous sheath was removed and a single Angio-Seal deployed for hemostasis. Protamine was given to reverse the effects of heparin. Lower extremity pulses were present bilaterally with no evidence bleeding at the vascular access sites. The patient was transferred to the PACU in stable condition Counts repoted as correct: Yes X-Ray findings: No Foreign body RAJAT BRICEÑO MD Jun 27, 2025 15:32
== END 2025-06-24 18:19 | disposition home or self-care (01) | DRG 266 ==
LOC: PAS IN 05:56 → PCU 3S 13:21
PROVIDERS: ADMIT Internal Medicine Cardiovascular Disease; ATTEND Internal Medicine Cardiovascular Disease
PROC: B41D1ZZ Fluoroscopy of Aorta and Bilateral Lower Extremity Arteries using Low Osmolar Contrast (ICD-10-PCS; 2025-06-23)
PROC: 02RF37Z Replacement of Aortic Valve with Autologous Tissue Substitute, Percutaneous Approach (ICD-10-PCS; principal; 2025-06-23 09:16)
DX: I35.0 Nonrheumatic aortic (valve) stenosis (principal); Z00.6 Encounter for examination for normal comparison and control in clinical research program; I50.33 Acute on chronic diastolic (congestive) heart failure; I11.0 Hypertensive heart disease with heart failure; I48.91 Unspecified atrial fibrillation; E78.5 Hyperlipidemia, unspecified; Z79.01 Long term (current) use of anticoagulants
CPT/HCPCS: 33361; 36415; 71045; 76937; 80053; 81001; 82948; 83735; 83880; 85025; 85347; 85610; 85730; 86885; 86900; 86901; 86920; 87081; 93005; 93308; A4618; A6258; A6402; A6449; A6590; C1756; C1760; C1769; C1894; G0378; J0690; J1644; J2003; J2250; J2371; J2704; J2720; J3010; J3373; J3375; J3490; J7030; J7040; J7050; J7120; Q9967